=== PATIENT | female | born 1990 | race Caucasian/White ===

== ENCOUNTER 2017-07-02 17:40 | Emergency (ER) | payer MEDICAID, SELFPAY ==
[2017-07-02 18:04] VITALS: BP 111/68; PULSE 64; RESP 20; TEMP 36.9; O2SAT 97; BMI 21.4
[2017-07-02 18:33] VITALS: BP 120/72; PULSE 68; PULSE 86; RESP 16; RESP 20; O2SAT 98; BMI 21.4
--- NOTE | 2017-07-02 18:37 | HMH.EDNECK ---
ED Disposition Clinical Impression: Cervical muscle strain Disposition: Home, Self-Care Condition on Discharge: Good Additional Instructions: Ice for 48 hours, ten minutes at a time every few hours while awake; Naproxen, see Dr. Morin in two to four days for recheck Prescriptions: Naproxen [EC-Naprosyn] 500 mg PO BID PRN #20 tablet.dr OGLESBY Reason: Pain Per Pt (Insurance Account Representative Use Only) Referrals: Blake Morin MD [Primary Care Provider] - Time of Disposition: 19:13 - Critical Care Critical Care Time: No Attestation: On 07/02/17, the high probability of a clinically significant, sudden or life threatening deterioration of the following system(s) required my full and direct attention, intervention and personal management. The time I documented below is in addition to time spent performing reported procedures but includes the following listed in this critical care notation. Medical Decision Making - Jame Inquiry Pt receiving controlled substance: No Vital Signs: 07/02/17 18:04 07/02/17 18:33 Temperature 98.4 F Temperature Source Temporal Artery Scan Pulse Rate [Brachial] 64 68 Respiratory Rate 20 20 Blood Pressure [Right Arm] 111/68 120/72 Blood Pressure Mean [Right Arm] 82 88 Blood Pressure Source [Right Arm] Automatic Cuff Automatic Cuff Blood Pressure Position [Right Arm] Sitting Sitting 02 Sat by Pulse Oximetry 97 98 Oxygen Delivery Method Room Air Room Air - Lab Data Lab Results 07/02/17 18:42: Urine HCG, Qual Negative Orders (Tests/Meds): ED MEDICATIONS Discontinued Medications Generic Name Dose Route Start Last Admin Trade Name Freq PRN Reason Stop Dose Admin Ketorolac Tromethamine 60 mg 07/02/17 18:37 Toradol 30mg/Ml Vial IM 07/02/17 18:38 ONCE ONE ORDERS Category Date Time Status Cervical spine XR 5 views [XR cervical spine 5V] Stat Exams 07/02/17 18:39 Ordered - Radiology Data #1 Image(s): C-Spine Image Reviewed: Yes I reviewed the patient's radiology results Preliminary Findings: Normal/NAD (no acute findings; good alignment and no fx) Neck Pain/Injury HPI - General Stated Complaint: Fall injury, neck and back pain Mode of Arrival: Ambulatory Source of Information: Patient Limitations: No Limitations Description of Symptoms (Recalled from ER Triage Doc. by RN): FELL ON ICE THIS AM HAS NECK AND BACK PAIN - History of Present Illness HPI Narrative: Fell on steps this AM when walking dog; neg LOC; c/o spasm to left neck. No SOB; no neurological sx. No abdominal pain. No vomiting. No chest pain. No low back pain. Ambulatory. Hx lumbar strain but denies hx neck pain prior to today. MD complaint: neck pain Onset (ago): hour(s) Place: home Radiation: left lateral Severity: mild Quality: dull Duration: constant Relieving factors: remaining still Exacerbating factors: movement of neck Context: fall Associated symptoms: none Treatments prior to arrival: acetaminophen - Related Data Previous Rx's Medication Instructions Recorded Naproxen [EC-Naprosyn] 500 mg PO BID PRN #20 tablet. 07/02/17 Allergies Allergy/AdvReac Type Severity Reaction Status Date / Time oxycodone [From PERCOCET] Allergy Unknown ITCHING Unverified 04/10/17 15:10 [facility] History I have reviewed the patient's past medical history: Yes - Social History Smoking Status: Current every day smoker Alcohol Intake: never - Psychiatric History Expresses thoughts of harming self/others: None Suicide Plan Description: No Plan ROS Obtained: Yes All systems reviewed & no additional complaints Physical Exam - General General appearance: alert, in no apparent distress - Head Head exam: atraumatic, normocephalic, normal inspection - Eye Eye exam: Present: normal appearance, PERRL, EOMI - ENT ENT exam: Present: normal exam, normal oropharynx, mucous membranes moist, TM's normal bilaterally, normal external ear exam - Neck Neck exam: Present: normal
--- NOTE | 2017-07-02 18:39 | XR_ITS ---
EXAM: XR cervical spine 5V HISTORY: Neck pain following injury, sprain/strain ITS.REASON: fell; neck spasm L ORDERING PHYSICIAN: Prateek Flanagan PATIENT AGE: 26 years COMPARISON: None FINDINGS: Normal alignment. There is straightening of the cervical lordosis which may be due to patient positioning or muscle spasm. No fracture or dislocation. No lytic or blastic change. No significant degenerative change. The disc spaces are preserved. Mildly prominent transverse processes present at C7 on the right as a normal variant. There is mild upper thoracic curvature convex left IMPRESSION: 1. No acute fracture. 2. Straightening of cervical lordosis which may be due to patient positioning or muscle spasm
--- NOTE | 2017-07-02 18:41 | ED_ITS ---
ED Disposition Clinical Impression: Cervical muscle strain Disposition: Home, Self-Care Condition on Discharge: Good Additional Instructions: Ice for 48 hours, ten minutes at a time every few hours while awake; Naproxen, see Dr. Morin in two to four days for recheck Prescriptions: Naproxen [EC-Naprosyn] 500 mg PO BID PRN #20 tablet.dr OGLESBY Reason: Pain Per Pt (Financial Sales Advisor Use Only) Referrals: Blake Morin MD [Primary Care Provider] - Time of Disposition: 19:13 - Critical Care Critical Care Time: No Attestation: On 07/02/17, the high probability of a clinically significant, sudden or life threatening deterioration of the following system(s) required my full and direct attention, intervention and personal management. The time I documented below is in addition to time spent performing reported procedures but includes the following listed in this critical care notation. Medical Decision Making - Jame Inquiry Pt receiving controlled substance: No Vital Signs: 07/02/17 18:04 07/02/17 18:33 Temperature 98.4 F Temperature Source Temporal Artery Scan Pulse Rate [Brachial] 64 68 Respiratory Rate 20 20 Blood Pressure [Right Arm] 111/68 120/72 Blood Pressure Mean [Right Arm] 82 88 Blood Pressure Source [Right Arm] Automatic Cuff Automatic Cuff Blood Pressure Position [Right Arm] Sitting Sitting 02 Sat by Pulse Oximetry 97 98 Oxygen Delivery Method Room Air Room Air - Lab Data Lab Results 07/02/17 18:42: Urine HCG, Qual Negative Orders (Tests/Meds): ED MEDICATIONS Discontinued Medications Generic Name Dose Route Start Last Admin Trade Name Freq PRN Reason Stop Dose Admin Ketorolac Tromethamine 60 mg 07/02/17 18:37 Toradol 30mg/Ml Vial IM 07/02/17 18:38 ONCE ONE ORDERS Category Date Time Status Cervical spine XR 5 views [XR cervical spine 5V] Stat Exams 07/02/17 18:39 Ordered - Radiology Data #1 Image(s): C-Spine Image Reviewed: Yes I reviewed the patient's radiology results Preliminary Findings: Normal/NAD (no acute findings; good alignment and no fx) Neck Pain/Injury HPI - General Stated Complaint: Fall injury, neck and back pain Mode of Arrival: Ambulatory Source of Information: Patient Limitations: No Limitations Description of Symptoms (Recalled from ER Triage Doc. by RN): FELL ON ICE THIS AM HAS NECK AND BACK PAIN - History of Present Illness HPI Narrative: Fell on steps this AM when walking dog; neg LOC; c/o spasm to left neck. No SOB ; no neurological sx. No abdominal pain. No vomiting. No chest pain. No low back pain. Ambulatory. Hx lumbar strain but denies hx neck pain prior to today. MD complaint: neck pain Onset (ago): hour(s) Place: home Radiation: left lateral Severity: mild Quality: dull Duration: constant Relieving factors: remaining still Exacerbating factors: movement of neck Context: fall Associated symptoms: none Treatments prior to arrival: acetaminophen - Related Data Previous Rx's Medication Instructions Recorded Naproxen [EC-Naprosyn] 500 mg PO BID PRN #20 tablet. 07/02/17 Allergies Allergy/AdvReac Type Severity Reaction Status Date / Time oxycodone [From PERCOCET] Allergy Unknown ITCHING Unverified 04/10/17 15:10
[2017-07-02 18:51] LABS: Urine Pregnancy, HCG Qual. Negative (Negative)
[2017-07-02 19:23] VITALS: BP 121/84; PULSE 96; RESP 12; TEMP 37; O2SAT 100
== END 2017-07-02 19:26 | disposition home or self-care (01) ==
LOC: UTC 17:42 → ER 18:28
PROVIDERS: Emergency Medicine; Emergency Provider Nurse Practitioner Family; Family Provider Emergency Medicine; PCP Internal Medicine Adolescent Medicine
DX: S16.1XXA Strain of muscle, fascia and tendon at neck level, initial encounter (principal); Z88.6 Allergy status to analgesic agent; F17.210 Nicotine dependence, cigarettes, uncomplicated; W10.9XXA Fall (on) (from) unspecified stairs and steps, initial encounter; Y92.019 Unspecified place in single-family (private) house as the place of occurrence of the external cause
CPT/HCPCS: 72050; 81025; 96372; 99283; 99291

== ENCOUNTER → 2018-07-04 13:00 | Outpatient (CLI) | payer MEDICAID, SELFPAY ==
--- NOTE | 2018-07-04 13:01 | US_ITS ---
US breast RT complete INDICATION: Palpable abnormality at 9:00 ORDERING PHYSICIAN: Jeffrey Malagon MD PATIENT AGE: 27 years COMPARISON: 03/30/2010 TECHNIQUE: Right breast ultrasound complete with axilla. FINDINGS: There is a 9 x 5 x 11 mm slightly hypoechoic nodule at 7:00 near the nipple. At the palpable area o'clock there is a ill-defined area of heterogeneous decrease echogenicity. The 10:00 there is also heterogeneous decreased echogenicity. Prominent ducts are present in the 2 small nodes in the axilla. IMPRESSION: Probably benign findings with scattered hypoechoic areas which may be due to areas of fibroglandular tissue. Recommend 3 month follow-up BI-RADS Category: 3 Probably Benign Finding Short Term Follow-up RECOMMENDED FOLLOW-UP: 3M - 3 MONTH FOLLOWUP (A letter has been sent to the patient regarding results of the study.)
== END ==
PROVIDERS: PCP Internal Medicine Adolescent Medicine; Visit Provider Nurse Practitioner Obstetrics & Gynecology
DX: N63.10 Unspecified lump in the right breast, unspecified quadrant (principal)
CPT/HCPCS: 76641

== ENCOUNTER → 2018-11-14 15:01 | Outpatient (CLI) | payer MEDICAID, SELFPAY ==
[2018-11-14 15:12] LABS: Basophils % 0.5 % (0.1-2.0); Eosinophils # 0.2 K/mm3 (0.0-0.4); Eosinophils % 3.2 % (0.1-12.0); Hematocrit 43.3 % (37.0-47.0); Hemoglobin 13.4 g/dL (12.2-16.2); Lymphocytes # 1.9 K/mm3 (0.7-4.5); Lymphocytes % 27.6 % (10-50); Mean Corpuscular HGB Conc 30.8 g/dL (31.8-35.4); Mean Corpuscular Hemoglobin 26.8 pg (27.0-31.2); Mean Corpuscular Volume 86.9 fl (81-99); Monocytes # 0.4 K/mm3 (0.1-1.0); Monocytes % 5.3 % (1.7-9.3); Neutrophils # 4.4 K/mm3 (1.8-7.8); Neutrophils % 63.5 % (37.0-80.0); Platelet Count 229 K/mm3 (142-424); Red Blood Count 4.98 M/mm3 (4.20-5.40); Red Cell Distribution Width 12.6 % (11.5-17.5); White Blood Count 6.9 K/mm3 (4.8-10.8)
[2018-11-14 16:21] LABS: Alanine Aminotransferase 18 U/L (12-78); Albumin Level 3.5 gm/dL (3.4-5.0); Albumin/Globulin Ratio 1.3 (1.1-1.8); Alkaline Phosphatase 59 U/L (46-116); Anion Gap 7.9 mEq/L (5-15); Aspartate Amino Transferase 7 U/L (15-37); Bilirubin,Total 0.3 mg/dL (0.2-1.0); Blood Urea Nitrogen 5 mg/dL (7-18); Calcium 10.1 mg/dL (8.5-10.1); Carbon Dioxide 34 mmol/L (21.0-32.0); Chloride 104 mmol/L (98-107); Creatinine,Serum 0.87 mg/dL (0.55-1.02); Estimated Glomerular Filt Rate 78 ml/min (>60); Free Thyroxine Index 1.4 ug/dL (5.93-13.13); GFR (African American) 94 ML/MIN (>60); Globulin 2.8 gm/dl (1.3-3.2); Glucose 81 mg/dL (74-106); Potassium 4.9 mmoL/L (3.5-5.1); Sodium 141 mmol/L (136-145); T4 (Thyroxine) 5.5 ug/dl (4.7-13.3); Thyroid Stimulating Hormone 3.11 uIU/ml (0.358-3.740); Total Protein,Serum 6.3 gm/dL (6.4-8.2); Triiodothryronine (T3) Uptake 26 % (31-39)
== END ==
PROVIDERS: Visit Provider Nurse Practitioner Family
DX: F41.8 Other specified anxiety disorders (principal); Z86.39 Personal history of other endocrine, nutritional and metabolic disease
CPT/HCPCS: 36415; 80053; 84436; 84443; 84479; 85025

== ENCOUNTER 2019-09-17 23:11 | Emergency (ER) | payer OTHER, SELFPAY ==
[2019-09-18 00:22] VITALS: BMI 21.6
[2019-09-18 00:23] VITALS: BP 110/68; PULSE 86; RESP 14; TEMP 36.8; O2SAT 99; BMI 21.6
[2019-09-18 00:36] LABS: Microscopic, Urine URINE MICROSCOPIC (MICROSCOPIC)
[2019-09-18 00:38] LABS: Appearance,Urine CLEAR (Clear); Bilirubin,Urine Negative (Negative); Blood, Urine 3+ (Negative); Color,Urine YELLOW (Yellow); Glucose,Urine (UA) Negative (Negative); Ketones,Urine Negative (Negative); Leukocyte Esterase,Urine 3+ (Negative); Nitrate,Urine POSITIVE (Negative); Protein,Urine Negative (Negative); Urobilinogen,Urine 0.2 EU/dl (0.2)
[2019-09-18 00:50] LABS: Urine Pregnancy, HCG Qual. Negative (Negative)
[2019-09-18 00:57] LABS: Bacteria,Urine Trace /lpf; Squamous Epithelial Cell,Urine Occasional #/hpf (0-5); WBC,Urine 20-50 #/hpf (0-3)
--- NOTE | 2019-09-18 01:02 | HMH.EDGENADL ---
ED Disposition Clinical Impression: UTI (urinary tract infection) Qualifiers: Urinary tract infection type: site unspecified Hematuria presence: without hematuria Qualified Code(s): N39.0 - Urinary tract infection, site not specified Disposition: Home, Self-Care Condition on Discharge: Good Instructions: DI for Urinary Tract Infection (UTI) Additional Instructions: use meds and see pcp and dr batista for follow up Prescriptions: levoFLOXacin [Levaquin 500mg tab] 500 mg PO DAILY #7 tab Transmission Status: Pending to [id number] Phenazopyridine HCl [Pyridium 200mg Tablet] 200 pow PO TID #6 tab Transmission Status: Pending to [id number] Referrals: Eladio Pittman MD [Primary Care Provider] - Quintin Batista MD [Staff Physician] - - Critical Care Critical Care Time: No Attestation: On 09/17/19, the high probability of a clinically significant, sudden or life threatening deterioration of the following system(s) required my full and direct attention, intervention and personal management. The time I documented below is in addition to time spent performing reported procedures but includes the following listed in this critical care notation. Medical Decision Making - Medical Records Medical records reviewed: Yes: I reviewed the patient's medical records. - Jame Inquiry Pt receiving controlled substance: No Vital Signs: 09/18/19 00:23 Temperature 98.3 F Temperature Source Oral Pulse Rate [Right] 86 Respiratory Rate 14 Blood Pressure [Right Arm] 110/68 Blood Pressure Mean [Right Arm] 82 Blood Pressure Source [Right Arm] Automatic Cuff Blood Pressure Position [Right Arm] Sitting 02 Sat by Pulse Oximetry 99 Oxygen Delivery Method Room Air - Lab Data Lab results reviewed: Yes: I reviewed the patient's lab results. Lab Results 09/18/19 00:00: Urine Color Yellow, Urine Appearance Clear, Urine pH 7.0, Ur Specific Doran 1.010, Urine Protein Negative, Urine Glucose (UA) Negative, Urine Ketones Negative, Urine Blood 3+, Urine Nitrate Positive, Urine Bilirubin Negative, Urine Urobilinogen 0.2, Ur Leukocyte Esterase 3+ A, Urine RBC 5-10, Urine WBC 20-50, Ur Squamous Epith Cells Occasional, Urine Bacteria Trace 09/18/19 00:00: Urine HCG, Qual Negative Orders (Tests/Meds): ORDERS Category Date Time Status Urine Culture Stat Micro 09/18/19 00:00 Received General Adult HPI - General Chief complaint: PAIN Stated complaint: burning with urinating with pain Time Seen by Provider: 09/18/19 00:00 Mode of Arrival: Ambulatory Source of Information: Patient, Medical Record Limitations: No Limitations Description of Symptoms (Recalled from ER Triage Doc. by RN): Bilat lower back pain - History of Present Illness HPI narrative: dysuria with bilat back pain with no fever or vomiting Onset (ago): day(s) Location: back Severity: moderate Associated symptoms: denies other symptoms Treatments prior to arrival: none - Related Data Previous Rx's Medication Instructions Recorded Phenazopyridine HCl [Pyridium 200 pow PO TID #6 tab 09/18/19 200mg Tablet] levoFLOXacin [Levaquin 500mg 500 mg PO DAILY #7 tab 09/18/19 tab] Allergies Allergy/AdvReac Type Severity Reaction Status Date / Time oxycodone [From PERCOCET] Allergy Unknown ITCHING Verified 06/03/18 16:04 [facility] History - Hepatitis A Screen Drug use history?: No High risk sexual behaviors?: No History of sexually transmitted infection?: No Currently employed?: No Childcare worker?: No Do you have indoor plumbing?: Yes Do you have electricity?: Yes Attestation statement:: This patient has been screened for Hepatitis A risk factors. I have reviewed the patient's past medical history: Yes Medical History: Denies:: Diabetes Mellitus Type 1, Diabetes Mellitus Type 2 Fractures: Yes (LUMBAR FX 2 YEARS AGO) - Social History Smoking Status: Current every day smoker Tobacco Type: ciga
[2019-09-18 01:39] VITALS: BP 126/83; PULSE 75; RESP 16; TEMP 36.8; O2SAT 98
== END 2019-09-18 01:40 | disposition home or self-care (01) ==
PROVIDERS: Emergency Provider Emergency Medicine; PCP Emergency Medicine
DX: N30.00 Acute cystitis without hematuria (principal); F17.210 Nicotine dependence, cigarettes, uncomplicated
CPT/HCPCS: 81001; 81025; 87086; 87088; 87186; 99282

== ENCOUNTER → 2020-02-12 17:29 | Outpatient (CLI) | payer OTHER, SELFPAY ==
[2020-02-12 17:53] LABS: Basophils % 0.7 % (0.1-2.0); Eosinophils # 0.2 K/mm3 (0.0-0.4); Eosinophils % 3.2 % (0.1-12.0); Hematocrit 42.6 % (37.0-47.0); Hemoglobin 13.4 g/dL (12.2-16.2); Lymphocytes # 1.4 K/mm3 (0.7-4.5); Lymphocytes % 28.9 % (10-50); Mean Corpuscular HGB Conc 31.5 g/dL (31.8-35.4); Mean Corpuscular Hemoglobin 28.3 pg (27.0-31.2); Mean Corpuscular Volume 90.1 fl (81-99); Mean Platelet Volume 9.1 fl (7.4-10.4); Monocytes # 0.3 K/mm3 (0.1-1.0); Monocytes % 6.1 % (1.7-9.3); Neutrophils # 2.9 K/mm3 (1.8-7.8); Neutrophils % 61.1 % (37.0-80.0); Platelet Count 210 K/mm3 (142-424); Red Blood Count 4.73 M/mm3 (4.20-5.40); Red Cell Distribution Width 13.2 % (11.5-17.5); White Blood Count 4.7 K/mm3 (4.8-10.8)
[2020-02-12 18:13] LABS: Alanine Aminotransferase 9 U/L (12-78); Albumin Level 4.5 g/dl (3.5-5.0); Albumin/Globulin Ratio 1.6 (1.1-1.8); Alkaline Phosphatase 56 U/L (38-126); Anion Gap 12.4 mEq/L (5-15); Aspartate Amino Transferase 22 U/L (14-36); Bilirubin,Total 0.3 mg/dl (0.2-1.3); Blood Urea Nitrogen 4 mg/dl (7-17); Calcium 9.4 mg/dl (8.4-10.2); Carbon Dioxide 29 mmol/L (22.0-30.0); Chloride 105 mmol/L (98-107); Chol/HDL Ratio 2.9 (1-3.5); Cholesterol 157 mg/dl (140-200); Estimated Glomerular Filt Rate 99 ml/min (>60); GFR (African American) 120 ML/MIN (>60); Globulin 2.9 g/dL (1.3-3.2); Glucose 94 mg/dl (74-100); HDL Cholesterol 54 mg/dl (40-60); Potassium 4.4 mmoL/L (3.5-5.1); Sodium 142 mmol/L (136-145); Total Protein,Serum 7.4 g/dl (6.3-8.2); Triglycerides 66 mg/dl (30-150); VLDL Cholesterol 13 mg/dL (0-40)
[2020-02-12 18:28] LABS: Direct LDL Cholesterol 93.28 mg/dL (100-129)
[2020-02-12 21:53] LABS: T4 (Thyroxine) 6.4 ug/dl (5.53-11.0)
[2020-02-12 22:06] LABS: Thyroid Stimulating Hormone 4.39 uIU/mL (0.465-4.68)
== END ==
PROVIDERS: Visit Provider Nurse Practitioner Family
DX: R53.83 Other fatigue (principal); E03.9 Hypothyroidism, unspecified
CPT/HCPCS: 80053; 80061; 84436; 84443; 85025

== ENCOUNTER → 2020-02-17 13:48 | Outpatient (CLI) | payer OTHER, SELFPAY ==
--- NOTE | 2020-02-17 13:48 | US_ITS ---
PROCEDURE: US THYROID CLINICAL INDICATION: enlarged thyroid Enlarged thyroid gland COMPARISON: No exams were available for comparison FINDINGS: Right lobe: 4.7 x 1.7 x 2.3 cm Left lobe: 4.9 x 1.9 x 1.6 cm. Isthmus: Mildly thickened at 5 mm Additional findings: There is heterogeneous echogenicity bilaterally. In the upper pole on the right there is a 5 mm slightly hyperechoic nodule nodule. Mid polar region 8 mm hyperechoic nodule. In the lower pole there is a 7 mm hypoechoic nodule. On the left in the lower pole there is a 12 mm hyperechoic nodule. Additionally in the left lower pole there is a 10 mm hyperechoic nodule. These nodules are well-circumscribed and have low level of suspicion for malignancy IMPRESSION: Probably benign findings. Recommend six-month follow-up regarding bilateral nodules and enlarged thyroid gland. Dictated by: Curly Britton MD 02/18/2020 12:25 Curly Britton MD in [place] 02/18/2020 12:25
== END ==
PROVIDERS: PCP Nurse Practitioner Family; Visit Provider Nurse Practitioner Family
DX: E04.9 Nontoxic goiter, unspecified (principal)
CPT/HCPCS: 76536

== ENCOUNTER → 2020-03-08 15:48 | Outpatient (CLI) | payer OTHER, SELFPAY ==
[2020-03-08 16:57] LABS: Calcium 10.3 mg/dl (8.4-10.2)
[2020-03-11 09:24] LABS: Thyroid Peroxidase Antibodies 118 IU/mL (0-34)
[2020-03-12 08:59] LABS: Calcitonin <2.0 pg/mL (0.0-5.0)
[2020-03-13 11:00] LABS: Thyroid Stimulating Immunoglob <0.10 IU/L (0.00-0.55)
== END ==
PROVIDERS: Visit Provider Otolaryngology
DX: E01.0 Iodine-deficiency related diffuse (endemic) goiter (principal); E04.9 Nontoxic goiter, unspecified
CPT/HCPCS: 36415; 82308; 82310; 84445; 86376

== ENCOUNTER → 2020-07-05 15:06 | Outpatient (CLI) | payer OTHER, SELFPAY ==
--- NOTE | 2020-07-05 15:06 | US_ITS ---
PROCEDURE: US THYROID CLINICAL INDICATION: hx thyroiditis Follow up Nodules still seen COMPARISON: US US THYROID from 02/17/2020 FINDINGS: Right lobe: 1.8cm x 4.8cm x 2.6cm. There is diffuse heterogeneous echogenicity of the thyroid. There is a stable slightly hyperechoic nodule in the upper pole at 4 mm. Stable 9 mm isoechoic nodule in the mid polar region at 10 mm. Stable 7 mm hypoechoic nodule lower pole Left lobe: 1.5cm x 4.7cm x 1.7cm. There is a 5 mm area of slight increased echogenicity in the upper pole which could represent a small nodule versus heterogeneous echogenicity. 9 mm isoechoic nodule lower pole unchanged. Stable 8 mm slightly hyperechoic nodule in the lower pole Isthmus: The isthmus is thickened 4 mm. Additional findings: IMPRESSION: Stable bilateral thyroid nodules as described above. Ill-defined hyperechoic area upper pole and may be due to a small developing nodule versus heterogeneous echogenicity. Continued follow-up may confirm stability Dictated by: Curly Britton MD 07/06/2020 09:10 Curly Britton MD in [place] 07/06/2020 09:10
== END ==
PROVIDERS: PCP Emergency Medicine; Visit Provider Otolaryngology
DX: E06.9 Thyroiditis, unspecified (principal)
CPT/HCPCS: 76536

== ENCOUNTER → 2020-08-27 13:18 | Outpatient (CLI) | payer OTHER, SELFPAY ==
--- NOTE | 2020-08-27 13:18 | US_ITS ---
PROCEDURE: US OB <= 14 WEEKS FETUS CLINICAL INDICATION: for dates COMPARISON: No exams were available for comparison FINDINGS: An intrauterine gestational sac is present with a pole with a crown-rump length of 0.21cm correlating to gestational age of 5weeks 6days. heart tones are not readily identified however may be too early. Heart flicker may be present however, this is questionable. Yolk sac is noted. IMPRESSION: There is a single live intrauterine gestation present at 5 weeks 6 days. Heart tones are not definitely confirm. Follow-up suggested in 1-2 weeks to confirm viability.. Estimated due date by Ultrasound is 04/23/2021 Dictated by: Curly Britton MD 08/27/2020 17:15 Curly Britton MD in [place] 08/27/2020 17:15
== END ==
PROVIDERS: PCP Emergency Medicine; Visit Provider Nurse Practitioner Obstetrics & Gynecology
DX: Z34.90 Encounter for supervision of normal pregnancy, unspecified, unspecified trimester (principal)
CPT/HCPCS: 76801

== ENCOUNTER → 2020-09-15 15:45 | Outpatient (CLI) | payer OTHER, SELFPAY ==
[2020-09-15 16:27] LABS: Basophils % 0.5 % (0.1-2.0); Eosinophils # 0.1 K/mm3 (0.0-0.4); Eosinophils % 1.2 % (0.1-12.0); Hematocrit 36.9 % (37.0-47.0); Hemoglobin 12.5 g/dL (12.2-16.2); Lymphocytes # 1.2 K/mm3 (0.7-4.5); Lymphocytes % 18.6 % (10-50); Mean Corpuscular Hemoglobin 28.8 pg (27.0-31.2); Mean Corpuscular Volume 84.7 fl (81-99); Mean Platelet Volume 8.7 fl (7.4-10.4); Monocytes # 0.2 K/mm3 (0.1-1.0); Monocytes % 3.8 % (1.7-9.3); Neutrophils # 4.8 K/mm3 (1.8-7.8); Neutrophils % 75.9 % (37.0-80.0); Platelet Count 167 K/mm3 (142-424); Red Blood Count 4.36 M/mm3 (4.20-5.40); White Blood Count 6.3 K/mm3 (4.8-10.8)
[2020-09-15 20:46] LABS: T4 (Thyroxine) 7.3 ug/dl (5.53-11.0); Triiodothryronine (T3) Uptake 27 % (23.5-40.5)
[2020-09-15 20:59] LABS: Thyroid Stimulating Hormone 3.31 uIU/mL (0.465-4.68)
[2020-09-17 11:07] LABS: HIV Screen 4th Generation wRfx Non Reactive (Non Reactive)
[2020-09-17 12:46] LABS: Hepatitis B Surface Antigen Negative (Negative); Hepatitis C Antibody <0.1 s/co ratio (0.0-0.9); Rubella Antibodies, IgG 6.04 index (Immune >0.99)
[2020-09-17 13:12] LABS: Rapid Plasma Reagin Ab Titer Non Reactive (NonRea<1:1)
[2020-09-18 18:05] LABS: HSV 2 IgG Supplemental Testing Positive (Negative); HSV 2 IgG, Type Spec 1.36 index (0.00-0.90)
== END ==
PROVIDERS: Visit Provider Nurse Practitioner Obstetrics & Gynecology
DX: Z34.90 Encounter for supervision of normal pregnancy, unspecified, unspecified trimester (principal); E07.9 Disorder of thyroid, unspecified; O99.280 Endocrine, nutritional and metabolic diseases complicating pregnancy, unspecified trimester
CPT/HCPCS: 36415; 84436; 84443; 84479; 85025; 86592; 86695; 86703; 86762; 86790; 86850; 87340; 87380; G0432

== ENCOUNTER → 2020-12-08 12:42 | Outpatient (CLI) | payer OTHER, SELFPAY ==
--- NOTE | 2020-12-08 12:42 | US_ITS ---
PROCEDURE: US OB >= 14 WEEKS FETUS CLINICAL INDICATION: 20 week gestation COMPARISON: US US OB <= 14 WEEKS FETUS from 08/27/2020 FINDINGS: There is a single live fetus present in breech presentation. heart and body motion noted. Cervix is closed and measures 3 cm. The placenta is posterior with an accessory anterior lobe. Complete survey performed and was unremarkable on the submitted images as in PACS. No discrete anomalies identified on survey imaging by technologist. Active fetus. Three-vessel cord with satisfactory umbilical cord insertion. 4- chamber heart noted. Survey of brain & ventricles Unremarkable. Face and neck survey unremarkable. Diaphragm and chest views unremarkable. Abdomen: Both kidneys noted and unremarkable. Stomach noted and satisfactory. Spine: Survey of the spine satisfactory with no anomalies identified nor imaged. Both arms and legs noted. Amniotic Fluid: Adequate. Maternal adnexa: No significant findings. Measurements: Average ultrasound age 20weeks 2days. Gestational Age 20weeks 2days Estimated due date by ultrasound age 0104/25/2021. Estimated weight 358g BPD = 20weeks OFD = 20weeks 2days HC = 19weeks 3days AC = 21weeks 2days FL = 20weeks 1day Growth Percentile= 41% Heart Rate = 144bpm Cerebellum = 22weeks Humerus = 20weeks 1day HC/AC is 1.04 CI is 0.77 FL/BPD is 0.7 FL/AC is 0.2 IMPRESSION: Live IUP in breech presentation with an average ultrasound age of 20 weeks and 2 days. No obvious anomalies. Please see above for detail. Dictated by: Curly Britton MD 12/08/2020 16:51 Curly Britton MD in [place] 12/08/2020 16:51
== END ==
PROVIDERS: PCP Emergency Medicine; Visit Provider Nurse Practitioner Obstetrics & Gynecology
DX: Z36.0 Encounter for antenatal screening for chromosomal anomalies (principal); Z3A.20 20 weeks gestation of pregnancy
CPT/HCPCS: 76805

== ENCOUNTER → 2020-12-13 14:34 | Outpatient (CLI) | payer OTHER, SELFPAY | PROVIDERS: PCP Emergency Medicine; Visit Provider Nurse Practitioner Obstetrics & Gynecology | DX: Z11.52 Encounter for screening for COVID-19 (principal); U07.1 COVID-19 | CPT/HCPCS: U0003 ==

== ENCOUNTER → 2020-12-17 15:32 | Outpatient (CLI) | payer OTHER, SELFPAY ==
[2020-12-17 16:03] LABS: Influenza A, PCR Not Detected (NotDetected); Influenza B, PCR Not Detected (NotDetected)
[2020-12-17 16:49] LABS: Coronavirus 19, PCR Detected (NotDetected)
== END ==
PROVIDERS: PCP Nurse Practitioner Family; Visit Provider Nurse Practitioner Obstetrics & Gynecology
DX: Z20.822 Contact with and (suspected) exposure to COVID-19 (principal); U07.1 COVID-19
CPT/HCPCS: U0003

== ENCOUNTER 2021-01-21 09:53 | Outpatient (CLI) | payer OTHER, SELFPAY ==
[2021-01-21 10:33] LABS: Glucose,Fasting 88 mg/dl (74-100)
[2021-01-21 12:30] VITALS: BP 101/60; PULSE 64; RESP 17; TEMP 37; O2SAT 100
[2021-01-21 12:39] LABS: Glucose 1 Hour 127 mg/dL (74-100)
== END 2021-01-21 12:30 | disposition home or self-care (01) ==
PROVIDERS: Visit Provider Nurse Practitioner Obstetrics & Gynecology
DX: Z29.13 Encounter for prophylactic Rho(D) immune globulin (principal); Z34.90 Encounter for supervision of normal pregnancy, unspecified, unspecified trimester
CPT/HCPCS: 36415; 82951; 96372; J2790

== ENCOUNTER 2021-02-08 18:21 | Outpatient (CLI) | payer OTHER, SELFPAY ==
[2021-02-08 18:45] VITALS: BMI 24.0
[2021-02-08 19:07] LABS: Microscopic, Urine URINE MICROSCOPIC (MICROSCOPIC)
[2021-02-08 19:18] LABS: Appearance,Urine CLEAR (Clear); Bilirubin,Urine Negative (Negative); Blood, Urine Negative (Negative); Color,Urine YELLOW (Yellow); Glucose,Urine (UA) Negative (Negative); Ketones,Urine Negative (Negative); Leukocyte Esterase,Urine Negative (Negative); Nitrate,Urine Negative (Negative); Protein,Urine Negative (Negative); Specific Gravity, Urine <= 1.005 (1.005-1.030); Urobilinogen,Urine 0.2 EU/dl (0.2)
[2021-02-08 19:29] LABS: Amphetamine/Metha Screen,Urine Negative ng/ml (<1000); Barbiturates Screen,Urine Negative ng/ml (<200)
[2021-02-08 19:30] LABS: Benzodiazepines Screen,Urine Negative ng/ml (<200)
[2021-02-08 19:31] LABS: Cannabinoid Screen,Urine Negative ng/ml (<50); Cocaine Screen,Urine Negative ng/ml (<300)
[2021-02-08 19:32] LABS: Methadone Screen,Urine Negative ng/ml (<300)
[2021-02-08 19:33] LABS: Opiate Screen,Urine Negative ng/ml (<300); Phencyclidine Screen,Urine Negative ng/ml (<25)
[2021-02-08 19:43] VITALS: BP 103/59; PULSE 91; RESP 18; TEMP 36.8; O2SAT 95; BMI 23.9
[2021-02-08 20:12] LABS: Bacteria,Urine Trace /lpf
[2021-02-08 20:30] LABS: Fetal Fibronectin (Rapid) Negative (Negative)
== END 2021-02-08 21:01 | disposition home or self-care (01) ==
LOC: OBOUT 18:22 → OB 18:24
PROVIDERS: PCP Nurse Practitioner Obstetrics & Gynecology; Visit Provider Nurse Practitioner Obstetrics & Gynecology
DX: O47.03 False labor before 37 completed weeks of gestation, third trimester (principal); Z3A.29 29 weeks gestation of pregnancy
CPT/HCPCS: 59025; 80305; 81001; 82731; G0463

== ENCOUNTER → 2021-03-21 13:19 | Outpatient (CLI) | payer OTHER, SELFPAY ==
--- NOTE | 2021-03-21 13:19 | US_ITS ---
PROCEDURE: US OB FOLLOW UP CLINICAL INDICATION: sga FINDINGS: The following parameters are obtained: There is a single live fetus in cephalic presentation. The placenta is posterior and grade 2. Cervix is closed measuring 3.5 cm. Average ultrasound age is Average 34weeks Estimated due date by ultrasound is 05/02/2021. Estimated weight is 2,309g. BPD: 33weeks 6days OFD: 34.1 weeks HC: 33weeks 5days AC: 33weeks 6days FL: 34weeks 3days heart rate: 146bpm bpm. HC/AC: 1.01 Cephalic index: 0.78 FL/BPD: 0.8 FL/AC: 0.22 Amniotic fluid index: 15.5cm The femur length is 34weeks 3days Biophysical profile is 8 of 8. Resistive index of the umbilical artery is 0.62 and the SD ratio is 2.7. These are below 90th percentile IMPRESSION: Live IUP in cephalic presentation with an average ultrasound age 34 weeks and an estimated weight of 2309 g. This is 15th percentile. Biophysical profile 8 of 8 Unremarkable SD ratio of the umbilical artery. Dictated by: Curly Britton MD 03/21/2021 17:11 Curly Britton MD in [place] 03/21/2021 17:11
== END ==
PROVIDERS: Visit Provider Nurse Practitioner Obstetrics & Gynecology
DX: O36.5990 Maternal care for other known or suspected poor fetal growth, unspecified trimester, not applicable or unspecified (principal)
CPT/HCPCS: 76816; 76819

== ENCOUNTER → 2021-03-22 18:08 | Outpatient (CLI) | payer OTHER, SELFPAY | PROVIDERS: Visit Provider Nurse Practitioner Obstetrics & Gynecology | DX: Z34.90 Encounter for supervision of normal pregnancy, unspecified, unspecified trimester (principal) | CPT/HCPCS: 86403 ==

== ENCOUNTER 2021-04-01 11:52 | Outpatient (CLI) | payer OTHER, SELFPAY ==
[2021-04-01 12:00] VITALS: BMI 23.8
[2021-04-01 12:41] VITALS: BP 118/65; PULSE 94; RESP 18; TEMP 36.4; O2SAT 100; BMI 23.8
== END 2021-04-01 12:40 | disposition home or self-care (01) ==
LOC: OBOUT 11:53 → OB 11:54
PROVIDERS: PCP Nurse Practitioner Family; Visit Provider Obstetrics & Gynecology
DX: O47.03 False labor before 37 completed weeks of gestation, third trimester (principal); Z3A.36 36 weeks gestation of pregnancy
CPT/HCPCS: 59025; G0463

== ENCOUNTER 2021-04-13 15:09 | Outpatient (CLI) | payer OTHER, SELFPAY ==
[2021-04-13 15:26] VITALS: BP 109/61; PULSE 100; RESP 20; TEMP 36.8; O2SAT 100; BMI 23.8
[2021-04-13 15:54] VITALS: BP 109/61; PULSE 100; RESP 20; TEMP 36.8; O2SAT 100; BMI 23.8
[2021-04-13 16:07] LABS: Microscopic, Urine URINE MICROSCOPIC (MICROSCOPIC)
[2021-04-13 16:11] LABS: Appearance,Urine CLEAR (Clear); Bilirubin,Urine Negative (Negative); Blood, Urine Negative (Negative); Color,Urine YELLOW (Yellow); Glucose,Urine (UA) Negative (Negative); Ketones,Urine Negative (Negative); Leukocyte Esterase,Urine Negative (Negative); Nitrate,Urine Negative (Negative); PH,Urine 6.5 (5.0-8.5); Protein,Urine Negative (Negative); Urobilinogen,Urine 0.2 EU/dl (0.2)
[2021-04-13 16:23] LABS: Amphetamine/Metha Screen,Urine Negative ng/ml (<1000); Barbiturates Screen,Urine Negative ng/ml (<200)
[2021-04-13 16:24] LABS: Benzodiazepines Screen,Urine Negative ng/ml (<200)
[2021-04-13 16:25] LABS: Cannabinoid Screen,Urine Negative ng/ml (<50); Cocaine Screen,Urine Negative ng/ml (<300)
[2021-04-13 16:26] LABS: Methadone Screen,Urine Negative ng/ml (<300)
[2021-04-13 16:27] LABS: Opiate Screen,Urine Negative ng/ml (<300); Phencyclidine Screen,Urine Negative ng/ml (<25)
[2021-04-13 16:36] LABS: Squamous Epithelial Cell,Urine Occasional #/hpf (0-5)
== END 2021-04-13 16:55 | disposition home or self-care (01) ==
LOC: OBOUT 15:11 → OB 15:11
PROVIDERS: PCP Nurse Practitioner Family; Visit Provider Nurse Practitioner Obstetrics & Gynecology
DX: O60.03 Preterm labor without delivery, third trimester (principal); Z3A.38 38 weeks gestation of pregnancy
CPT/HCPCS: 59025; 80305; 81001; G0463

== ENCOUNTER 2021-04-16 19:09 | Outpatient (CLI) | payer OTHER, SELFPAY ==
[2021-04-16 19:21] VITALS: BMI 23.9
[2021-04-16 19:41] VITALS: BP 112/63; PULSE 94; RESP 18; TEMP 36.6; O2SAT 100; BMI 24.0
[2021-04-16 19:47] LABS: Microscopic, Urine URINE MICROSCOPIC (MICROSCOPIC)
[2021-04-16 19:51] LABS: Appearance,Urine CLEAR (Clear); Bilirubin,Urine Negative (Negative); Blood, Urine Negative (Negative); Color,Urine YELLOW (Yellow); Glucose,Urine (UA) Negative (Negative); Ketones,Urine TRACE (Negative); Leukocyte Esterase,Urine TRACE (Negative); Nitrate,Urine Negative (Negative); Protein,Urine TRACE (Negative); Specific Gravity, Urine 1.025 (1.005-1.030)
[2021-04-16 20:02] LABS: Barbiturates Screen,Urine Negative ng/ml (<200); Benzodiazepines Screen,Urine Negative ng/ml (<200)
[2021-04-16 20:03] LABS: Amphetamine/Metha Screen,Urine Negative ng/ml (<1000); Cannabinoid Screen,Urine Negative ng/ml (<50)
[2021-04-16 20:04] LABS: Cocaine Screen,Urine Negative ng/ml (<300)
[2021-04-16 20:05] LABS: Methadone Screen,Urine Negative ng/ml (<300); Opiate Screen,Urine Negative ng/ml (<300)
[2021-04-16 20:06] LABS: Phencyclidine Screen,Urine Negative ng/ml (<25)
[2021-04-16 20:19] LABS: Bacteria,Urine 1+ /lpf; Calcium Oxalate Crystals,Urine 1+ /lpf
== END 2021-04-16 20:30 | disposition home or self-care (01) ==
LOC: OBOUT 19:12 → OB 19:14
PROVIDERS: PCP Nurse Practitioner Obstetrics & Gynecology; Visit Provider Nurse Practitioner Obstetrics & Gynecology
DX: Z34.90 Encounter for supervision of normal pregnancy, unspecified, unspecified trimester (principal)
CPT/HCPCS: 59025; 80305; 81001; 87086; G0463

== ENCOUNTER → 2021-04-17 11:54 | Outpatient (CLI) | payer OTHER, SELFPAY | PROVIDERS: PCP Nurse Practitioner Family; Visit Provider Nurse Practitioner Family | DX: U07.1 COVID-19 (principal) | CPT/HCPCS: C9803; U0003; U0005 ==

== ENCOUNTER 2021-04-19 04:55 | Inpatient (IN) | payer OTHER, SELFPAY ==
[2021-04-19 04:59] VITALS: BMI 24.0
[2021-04-19 05:45] LABS: Coronavirus 19, PCR Not Detected (NotDetected); Influenza A, PCR Not Detected (NotDetected); Influenza B, PCR Not Detected (NotDetected)
[2021-04-19 05:45] LABS: Microscopic, Urine URINE MICROSCOPIC (MICROSCOPIC)
[2021-04-19 05:47] LABS: Appearance,Urine CLEAR (Clear); Bilirubin,Urine Negative (Negative); Blood, Urine Negative (Negative); Color,Urine YELLOW (Yellow); Glucose,Urine (UA) Negative (Negative); Ketones,Urine Negative (Negative); Leukocyte Esterase,Urine TRACE (Negative); Nitrate,Urine Negative (Negative); Protein,Urine Negative (Negative); Urobilinogen,Urine 0.2 EU/dl (0.2)
[2021-04-19 05:49] VITALS: BP 123/56; PULSE 83; RESP 18; TEMP 36.9; O2SAT 98; BMI 24.0
[2021-04-19 05:49] LABS: Basophils # 0.1 K/mm3 (0-0.2); Basophils % 0.9 % (0.1-2.0); Eosinophils # 0.2 K/mm3 (0.0-0.4); Eosinophils % 1.8 % (0.1-12.0); Hematocrit 31.7 % (37.0-47.0); Hemoglobin 10.2 g/dL (12.2-16.2); Lymphocytes # 1.7 K/mm3 (0.7-4.5); Lymphocytes % 18.8 % (10-50); Mean Corpuscular HGB Conc 32.2 g/dL (31.8-35.4); Mean Corpuscular Hemoglobin 27.5 pg (27.0-31.2); Mean Corpuscular Volume 85.4 fl (81-99); Mean Platelet Volume 8.7 fl (7.4-10.4); Monocytes # 0.4 K/mm3 (0.1-1.0); Monocytes % 4.6 % (1.7-9.3); Neutrophils # 6.7 K/mm3 (1.8-7.8); Neutrophils % 73.8 % (37.0-80.0); Platelet Count 237 K/mm3 (142-424); Red Blood Count 3.72 M/mm3 (4.20-5.40); Red Cell Distribution Width 14.5 % (11.5-17.5); White Blood Count 9.1 K/mm3 (4.8-10.8)
[2021-04-19 05:59] LABS: Opiate Screen,Urine Negative ng/ml (<300); Phencyclidine Screen,Urine Negative ng/ml (<25)
[2021-04-19 06:04] LABS: Amphetamine/Metha Screen,Urine Negative ng/ml (<1000)
[2021-04-19 06:05] LABS: Barbiturates Screen,Urine Negative ng/ml (<200)
[2021-04-19 06:06] LABS: Benzodiazepines Screen,Urine Negative ng/ml (<200); Cannabinoid Screen,Urine Negative ng/ml (<50)
[2021-04-19 06:07] LABS: Cocaine Screen,Urine Negative ng/ml (<300); Methadone Screen,Urine Negative ng/ml (<300)
--- NOTE | 2021-04-19 08:21 | HMH.LABNOT ---
Labor Note - Subjective: Date: 04/19/21 Time: 08:21 regular contraction - Objective: NST:: Reactive Contractions:: every 2-3 minutes Cervical Dilation:: 4 Effacement:: 75% Station: -2 Membranes: artificially ruptured - Fetus: Monitoring?: Yes monitoring type:: Internal - Assessment: Labor progressing?: Yes Cephalopelvic disproportion?: No Patient Problems: All Active Problems (Acute) Cervical muscle strain (Acute) Oral candidiasis (Acute) Sciatica (Acute) UTI (urinary tract infection) (Acute) URI (upper respiratory infection) (Acute) Finger injury (Acute) - Plan: Anesthesia for epidural?: Yes Continue to labor down?: Yes Plan for ?: No Continue to monitor?: Yes Start pushing?: No
--- NOTE | 2021-04-19 08:30 | HMH.OBAPHP ---
OB - H&P: HPI Antepartum - History of Present Illness Chief complaint: Term , History of present illness: She is a 30-year-old 6 para 4 at 39 and 3 weeks gestational age. She has had lots of contractions and expressed a desire for delivery at term. - History of Present Criteria for establishing EDC:: LMP confirmed by 1st trimester US care: good care Ultrasounds: normal 1st trimester US, normal mid trimester US Obstetrical complications: none Medical complications: none - Labs Blood type: O (-) negative Rubella: immune RPR/VDRL: nonreactive GBS status: positive HBsAG: negative [facility] History I have reviewed the patient's past medical history: Yes Medical History: Denies:: Diabetes Mellitus Type 1, Diabetes Mellitus Type 2 *Have you ever received a pneumonia vaccine?: No *Have you received a flu vaccine this season?: No Other Medical History: Reports: Thyroid Disease Other Surgeries: Yes: No Previous Surgery, Other. No: Amputation: No Fractures: Yes (LUMBAR FX 2 YEARS AGO) - *Social History Smoking Status: Current every day smoker Tobacco Type: cigarettes # Packs/Day (cigarettes): 1 Alcohol Intake: never Alcohol Intake Frequency:: other Substance Use Type: denies use *Occupational Status:: unemployed *Travel in the last 8 weeks: None Family Hx:: Hyperlipidemia, Diabetes, Asthma, Heart Attack, Hypertension, Stroke Para: 4 Review of Systems - Review of Systems Review of systems:: pertinent systems reviewed and negative unless documented below Meds Home Medications Medication Instructions Recorded Confirmed Type prenat.vits,remedios,enw-ierx-bkhnl 1 tab PO DAILY 09/15/20 04/19/21 History terconazole 0.4 % vaginal cream 1 appful VAGINAL HS 7 Days #45 g 09/15/20 04/12/21 Rx ascorbic acid (vitamin C) 1,000 mg 1 g PO DAILY #90 tab 12/14/20 04/12/21 Rx tablet cholecalciferol (vitamin D3) 50 50 mcg PO DAILY #90 cap 12/14/20 04/12/21 Rx mcg (2,000 unit) capsule zinc 50 mg tablet 50 mg PO DAILY #90 tab 12/14/20 04/12/21 Rx acetaminophen 300 mg-codeine 30 mg 1 tab PO BID PRN #20 tab 10/28/21 12/21/21 Rx tablet methylprednisolone 4 mg tablets in 4 mg PO DAILY #21 tab 02/22/21 04/12/21 Rx a dose pack RX: Ferrous Sulfate 325 mg PO DAILY 04/19/21 04/19/21 History RX: Valacyclovir HCl [Valacyclovir] 1,000 mg PO DAILY 04/19/21 04/19/21 History Allergies Allergy/AdvReac Type Severity Reaction Status Date / Time oxycodone [From PERCOCET] Allergy Unknown ITCHING Verified 04/12/21 09:02 OB - H&P: Exam - Physical Exam Vital signs: Temp Pulse Resp BP Pulse Ox 98.4 F 83 18 123/56 L 98 04/19/21 05:49 04/19/21 05:49 04/19/21 05:49 04/19/21 05:49 04/19/21 05:49 - Constitutional no acute distress - Routine HEENT Exam Head: Present: normocephalic Eye: Present: EOMI, PERRL ENT: Present: mucous membranes moist - Routine Neck Exam Present: supple, full ROM - Routine Respiratory Exam Absent: accessory muscle use (good air entry bilaterally), respiratory distress, wheezes, crackles - Routine Cardiovascular Exam Present: RRR. Absent: murmur - Routine Abdominal Exam Present: soft, normoactive bowel sounds. Absent: tenderness, distended, guarding - Routine Rectal Exam Patient deferred: visual exam, digital exam - Routine Exam Patient deferred: external exam, groin exam, perineal exam - Routine Extremities Exam Present: full ROM. Absent: cyanosis, edema - Routine Skin Exam Present: intact. Absent: cyanosis - Routine Neurological Exam Present: alert, oriented X3 - Routine Psychiatric Exam Present: normal affect OB - Results - Labs Labs: Short CBC 04/19/21 Range/Units 05:32 WBC 9.1 (4.8-10.8) K/mm3 Hgb 10.2 L (12.2-16.2) g/dL Hct 31.7 L (37.0-47.0) % Plt Count 237 (142-424) K/mm3 Urine 04/19/21 Range/Units 05:10 Urine Color Yellow (Yellow) Urine Appearance Clear (
--- NOTE | 2021-04-19 09:32 | P.PN_ITS ---
[facility] Anesthesia Checklist - Patient Identification Patient Identification: Arm Band - Structural Data Admitted From: Inpatient Planned Operative Procedure/s: Labor Epidural Consent for Planned Operative Procedure(s) Verified: Yes Verified Documents: Surgical Consent, History and Physical - NPO Status Verified Time NPO: 00:00 - Additional verifications Anesthesia Reactions: No - Airway Assessment C-Spine Mobility Assessed: Yes (mp2) TMJ Mobility Assessed: Yes Dentition: Good Dentition - Neurological Assessment Level of Consciousness: Awake, Alert - Anesthesia Plan Anesthesia Risk discussed: Yes Anesthesia Plan: Verified ASA Class: II Anesthesia Type: Epidural [facility] History I have reviewed the patient's past medical history: Yes Medical History: Denies:: Diabetes Mellitus Type 1, Diabetes Mellitus Type 2 *Have you ever received a pneumonia vaccine?: No *Have you received a flu vaccine this season?: No Other Medical History: Reports: Thyroid Disease Anesthesia experience/problems:: nac Other Surgeries: Yes: Other. No: Amputation: No Fractures: Yes (LUMBAR FX 2 YEARS AGO) - *Social History Smoking Status: Current every day smoker Tobacco Type: cigarettes # Packs/Day (cigarettes): 1 Alcohol Intake: never Alcohol Intake Frequency:: other Substance Use Type: denies use *Occupational Status:: unemployed *Travel in the last 8 weeks: None Family Hx:: Hyperlipidemia, Diabetes, Asthma, Heart Attack, Hypertension, Stroke Para: 4
--- NOTE | 2021-04-19 09:51 | HMH.LABNOT ---
Labor Note - Subjective: Date: 04/19/21 Time: 09:51 regular contraction - Objective: NST:: Reactive Contractions:: every 2-3 minutes Cervical Dilation:: 6 Effacement:: 90% Station: -1 Membranes: artificially ruptured - Fetus: Monitoring?: Yes - Assessment: Labor progressing?: Yes Cephalopelvic disproportion?: No Patient Problems: All Active Problems Normal delivery at term (Acute) (Acute) Cervical muscle strain (Acute) Oral candidiasis (Acute) Sciatica (Acute) UTI (urinary tract infection) (Acute) URI (upper respiratory infection) (Acute) Finger injury (Acute) - Plan: Anesthesia for epidural?: Yes Continue to labor down?: Yes Plan for ?: No Continue to monitor?: Yes
--- NOTE | 2021-04-19 11:16 | HMH.DN ---
- Delivery Note Delivery Date:: 04/19/21 Delivery Time:: 10:48 Anesthesia Type: Epidural Was labor medically induced?: Yes Induction method: per pitocin protocol Gestational age (weeks): 39 Infant delivered prior to 39 weeks?: No Infant Gender: Female at 1 minute: 8 at 5 minutes: 9 Delivery Procedure:: She is a 30-year-old 6 para 4 who was 39+ weeks gestational age. She was feeling lots of pressure and visited labor and delivery numerous times for labor. We started her on IV oxytocin and ruptured her membranes. Under labor epidural she progressed to full dilation and delivered spontaneously a liveborn female child at 10:48 AM in the morning of April 19, 2021. On deliver the head it was noted that there was a loose nuchal cord which was easily reduced. This was followed by the rest infant's body atraumatically. The baby was vigorous. We allowed the cord to continue to pulsate for approximately 1 minute. The cord was then doubly clamped and cut and the infant was placed on the mother's abdomen for further care. The nurses assigned Apgars of 8 at 1 minute and 9 at 5 minutes. . We then obtained cord blood as well as cord pH. She received IV oxytocin using gentle traction on the cord and countertraction on the fundus I was able to easily deliver the placenta intact. There were no perineal or vaginal lacerations. She has O Rh- blood, she is rubella immune and was group B streptococcus positive. She did receive IV antibiotics while in labor. Her estimated blood loss was approximately 150 cc. Her flight engineer inspector is Dr. Pak. Placental Delivery Description: Spontaneous
--- NOTE | 2021-04-19 13:27 | HMH.PHAINT ---
MEDICATION RECONCILIATION COMPLETED ON PATIENT USING EXTERNAL FILL HISTORY FROM PHARMACY AND LIST FROM COLD STRIP ROLLER OFFICE. -YUE KILPATRICKD
[2021-04-19 19:55] VITALS: BP 104/55; PULSE 75; RESP 18; TEMP 36.8; O2SAT 98
[2021-04-20 03:54] VITALS: BP 102/58; PULSE 68; RESP 18; TEMP 36.4; O2SAT 98
[2021-04-20 05:40] LABS: Hematocrit 29.9 % (37.0-47.0); Hemoglobin 9.4 g/dL (12.2-16.2)
--- NOTE | 2021-04-20 08:32 | HMH.OBDCSM ---
General - General Admission date:: 04/19/21 Discharge date: 04/20/21 HPI - History of Present Illness History of present illness: She is a 30-year-old 6 now para 5 aborta 1 who is 39+ weeks gestational age. She was brought in for induction of labor at term. She was having irregular contractions and pressure. She has a history of precipitous delivery. 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 She has been taking valacyclovir. Hospital Course Hospital Course: She was started on IV oxytocin had her membranes ruptured. She progressed under labor epidural to full dilation and delivered spontaneously a liveborn female child at 10:48 AM on the morning of April 19, 2021. The baby weighed 6 pounds 11 ounces and had Apgars of 8 at 1 minute and 9 at 5 minutes. There were no perineal or vaginal lacerations. She has done well and has remained afebrile throughout her hospitalization. She is eating and drinking and ambulating. She is bottlefeeding. Her lochia is normal. She has O Rh- blood and she will receive RhoGam prior to discharge. She is rubella immune and was group B streptococcus positive. She did receive IV antibiotics while in labor. Her straw boss is Dr. Joseph. She is discharged home to follow-up with me in approximately 2 weeks time. She will continue with her vitamins and iron. She was given the usual instructions with respect to limiting her activity, driving and sexual activity. Her condition on discharge is stable and improved. Rhogam Administration: Given Objective Vital signs: Temp Pulse Resp BP Pulse Ox 97.6 F 68 18 102/58 L 98 04/20/21 03:54 04/20/21 03:54 04/20/21 03:54 04/20/21 03:54 04/20/21 03:54 no acute distress - *Routine HEENT Exam Head: Present: normocephalic Eye: Present: EOMI, PERRL ENT: Present: mucous membranes moist Results Labs on day of discharge: Labs from last 24 hours 04/20/21 04/20/21 05:04 05:04 Hgb 9.4 L Hct 29.9 L Screen Negative Baby's Rh Status Positive Rhogam Infusion Rhogam release DS: Diagnosis - Discharge Diagnosis (1) Normal delivery at term Status: Acute (2) Mother positive for group B Streptococcus colonization Status: Acute (3) Blood type, Rh negative Status: Acute (4) Herpes simplex type 2 infection complicating Status: Acute Discharge Plan - Patient Discharge Instructions ACTIVITY: No heavy lifting DIET: continue same diet Additional Instructions: *Nothing in the Vagina for 6 weeks* *No strenuous activity* *No heavy lifting* Patient Instructions: Depression, Hemorrhage, DI for Labor and Delivery, Vaginal , DI for Pre-eclampsia, [facility] Post Discharge Instructions, Preventing the Spread of Coronavirus Discharge Instructions - Follow up Plan Follow up with: Jeffrey Malagon MD [Staff Physician] - Disposition: Home, Self-Care Condition at discharge:: Stable (At home self-care stable) Home Medications: Home Medications Medication Instructions Recorded Confirmed Type prenat.vits,remedios,[id number] 1 tab PO DAILY 09/15/20 04/19/21 History Ferrous Sulfate 325 mg PO DAILY 04/19/21 04/19/21 History Valacyclovir HCl [Valacyclovir] 1,000 mg PO DAILY 04/19/21 04/19/21 History Prescriptions/Medication Reconciliation: Continued prenat.vits,remedios,[id number] 1 tab PO DAILY Ferrous Sulfate 325 mg PO DAILY Valacyclovir HCl [Valacyclovir] 1,000 mg PO DAILY - Problem Reconciliation Problems Reviewed?: Yes
== END 2021-04-20 15:10 | disposition home or self-care (01) | DRG 806 ==
PROVIDERS: Admitting Provider Nurse Practitioner Obstetrics & Gynecology; PCP Nurse Practitioner Family; Visit Provider Nurse Practitioner Obstetrics & Gynecology
DX: O99.824 Streptococcus B carrier state complicating childbirth (principal); N39.0 Urinary tract infection, site not specified; Z37.0 Single live birth; Z3A.39 39 weeks gestation of pregnancy; O75.3 Other infection during labor; O99.334 Smoking (tobacco) complicating childbirth; Z20.822 Contact with and (suspected) exposure to COVID-19; O36.5930 Maternal care for other known or suspected poor fetal growth, third trimester, not applicable or unspecified; O69.81X0 Labor and delivery complicated by cord around neck, without compression, not applicable or unspecified; O98.52 Other viral diseases complicating childbirth; F17.210 Nicotine dependence, cigarettes, uncomplicated
CPT/HCPCS: 59409; 36415; 59025; 80305; 81001; 85014; 85018; 85025; 85461; 86850; 87086; 94761; C1758; C9803; G0283; G0463; J0290; J2790; U0003; U0005

== ENCOUNTER → 2021-08-16 09:58 | Outpatient (CLI) | payer OTHER, SELFPAY ==
[2021-08-16 10:33] LABS: Basophils % 0.9 % (0.1-2.0); Eosinophils # 0.1 K/mm3 (0.0-0.4); Eosinophils % 1.7 % (0.1-12.0); Hematocrit 40.3 % (37.0-47.0); Hemoglobin 13.1 g/dL (12.2-16.2); Lymphocytes # 1.6 K/mm3 (0.7-4.5); Lymphocytes % 31.8 % (10-50); Mean Corpuscular HGB Conc 32.4 g/dL (31.8-35.4); Mean Corpuscular Hemoglobin 27.8 pg (27.0-31.2); Mean Corpuscular Volume 85.6 fl (81-99); Mean Platelet Volume 7.8 fl (7.4-10.4); Monocytes # 0.3 K/mm3 (0.1-1.0); Neutrophils % 60.5 % (37.0-80.0); Platelet Count 233 K/mm3 (142-424); Red Cell Distribution Width 14.2 % (11.5-17.5)
[2021-08-16 10:35] LABS: Chloride 105 mmol/L (98-107); Potassium 4.2 mmoL/L (3.5-5.1); Sodium 142 mmol/L (136-145)
[2021-08-16 10:38] LABS: Anion Gap 10.2 mEq/L (5-15); Blood Urea Nitrogen 10 mg/dl (7-17); Calcium 10.4 mg/dl (8.4-10.2); Carbon Dioxide 31 mmol/L (22.0-30.0); Estimated Glomerular Filt Rate 98 ml/min (>60); GFR (African American) 119 ML/MIN (>60); Glucose 91 mg/dl (74-100)
[2021-08-16 11:37] LABS: HCG Qualitative, Serum Negative (Negative)
== END ==
PROVIDERS: Visit Provider Nurse Practitioner Obstetrics & Gynecology
DX: Z01.818 Encounter for other preprocedural examination (principal); Z11.52 Encounter for screening for COVID-19
CPT/HCPCS: 80048; 84703; 85025; C9803; U0003; U0005

== ENCOUNTER 2021-08-18 07:39 | Day surgery (SDC) | payer OTHER, SELFPAY ==
[2021-08-15 16:29] VITALS: BMI 21.4
[2021-08-18] VITALS (12 sets, daily range): BP systolic 109–128; BP diastolic 57–85; PULSE 60–84; RESP 12–18; TEMP 36.4–43; O2SAT 95–99
--- NOTE | 2021-08-18 10:44 | HMH.ANESCL ---
[facility] Anesthesia Checklist - Structural Data Admitted From: Home Planned Operative Procedure/s: bilat salpingectomy Consent for Planned Operative Procedure(s) Verified: Yes - Additional verifications Anesthesia Reactions: No Hx Blood Transfusions: No Blood Transfusion Reaction: No - Airway Assessment C-Spine Mobility Assessed: Yes TMJ Mobility Assessed: Yes Dentition: Poor Dentition - Neurological Assessment Level of Consciousness: Awake, Alert, Appropriate - Anesthesia Plan Anesthesia Risk discussed: Yes Anesthesia Plan: Verified ASA Class: II Anesthesia Type: General [facility] History I have reviewed the patient's past medical history: Yes Medical History: Denies:: Cancer, Diabetes Mellitus Type 1, Diabetes Mellitus Type 2, Internal Pacemaker, MRSA, Seizures *Have you ever received a pneumonia vaccine?: No *Have you received a flu vaccine this season?: No Other Medical History: Reports: Thyroid Disease. Denies: Blood Transfusion Reaction Anesthesia experience/problems:: none Other Surgeries: Yes: No Previous Surgery, Other. No: , Pacemaker Amputation: No Fractures: Yes (LUMBAR FX 2 YEARS AGO) - *Social History Last grade of school completed: 9th or 10th Smoking Status: Current every day smoker Tobacco Type: cigarettes # Packs/Day (cigarettes): 1 Alcohol Intake: never Alcohol Intake Frequency:: other Substance Use Type: denies use *Occupational Status:: unemployed *Travel in the last 8 weeks: None Family Hx:: Hyperlipidemia, Diabetes, Asthma, Heart Attack, Hypertension, Stroke
--- NOTE | 2021-08-18 11:05 | PC.NURSE ---
pt voided per bedpan
--- NOTE | 2021-08-18 11:07 | HMH.OPNOTE ---
Date of procedure: 08/18/21 Pre-op Diagnosis:: Desire for sterilization Post-op Diagnosis:: Desire for sterilization Procedure performed:: Laparoscopic bilateral salpingectomy Surgeon:: Jeffrey Malagon MD WATCH TRAIN INSPECTOR:: Michel Michael Anesthesia: GETA Estimated blood loss (mL): 25 Clinical Note:: She is a 30-year-old 5 para 5 lady who expressed a desire for sterilization. The risks and benefits as well as the irreversibility of bilateral salpingectomy were discussed the patient prior to surgery. Operative findings:: She had a normal-appearing anteverted uterus. The tubes and ovaries appeared normal. The pelvis appeared normal. Both tubes were followed to their fimbriated ends and appeared normal. Operative note:: She was taken to the operating room where general anesthesia was found be adequate. She was prepped and draped in normal sterile fashion in the semilithotomy position. A weighted speculum was placed in the vagina and the anterior lip of the cervix was grasped with a tenaculum. I then inserted a Martha uterine manipulator into the cervical os. The balloon was then insufflated. I changed gloves and injected 10 cc of 0.5% ropivacaine around her umbilicus and made a small incision within the umbilicus. I inserted a Veress needle into the abdominal cavity. The peritoneal cavity was then insufflated with carbon dioxide gas to a pressure of 20 mmHg. I then inserted a 5 millimeter trocar under direct vision. I injected through and through the pubic hairline, made a small incision here and inserted an 8 mm trocar under direct vision. I identified the inferior epigastric artery on the left side, went lateral to these and injected through and through. I then placed a 5 mm trocar here under direct vision. The pelvis and upper abdomen were then inspected and the findings were as previously dictated. I grasped the right tube at the cornua and using harmonic scalpel on coagulation mode I cut through the tube. I then grasped the distal tube and using harmonic scalpel cut along the mesosalpinx. The tube was removed through 8 mm trocar site. This was similarly performed on the patient's left side. I then injected 30 cc of 0.5% ropivacaine into the pelvis. After assuring hemostasis the gas was let out of the abdomen and hemostasis was once again assured. The abdomen was then reinsufflated. The secondary trochars were removed under direct vision. The gas was let out her abdomen. The primary trocar was then removed. The 8 mm trocar site was closed deeply with 2-0 Vicryl suture followed by subcuticular 4-0 Monocryl suture. The 5 mm trocar sites were closed with subcuticular 4-0 Monocryl. Sterile dressings were applied. The patient tolerated the procedure well and was taken to the recovery room in excellent condition. All sponge instrument and needle counts were correct. The estimated blood loss was less than 25 cc. Condition: stable Disposition: PACU Specimens:: Bilateral fallopian tubes Complications:: None
--- NOTE | 2021-08-18 13:16 | HMH.ANESII ---
[facility] Anesthesia Record Part II Discharge Time: 11:10 Destination: Surgical Day Care (OP Surgery) PACU nurse assessment reviewed?: Yes Patient Condition:: Good Anesthesia Complications:: None Swallowing reflex intact?: Yes Cyanosis?: No Blood Pressure: 109/71 Pulse Rate: 61 Temperature: 97.6 F Mental Status: Alert & Oriented Pain level:: 2 Nausea and/or vomitting:: None Intake, IV Amount: 0
== END 2021-08-18 12:25 ==
LOC: OR 07:42
PROVIDERS: PCP Nurse Practitioner Family; Visit Provider Nurse Practitioner Obstetrics & Gynecology
PROC: (CPT 58661; principal; 2021-08-18 09:00)
DX: Z30.2 Encounter for sterilization (principal); Z72.0 Tobacco use; Z88.6 Allergy status to analgesic agent
CPT/HCPCS: 58661; 96374; J2405; J2710

== ENCOUNTER 2024-01-03 13:30 | Outpatient (CLI) | payer OTHER, SELFPAY | END 2024-01-03 23:59 | disposition home or self-care (01) | LOC: LAB.DROPOF 01-04 13:00 | PROVIDERS: PCP Student in an Organized Health Care Education/Training Program; Visit Provider Student in an Organized Health Care Education/Training Program | DX: R39.9 Unspecified symptoms and signs involving the genitourinary system (principal); N39.0 Urinary tract infection, site not specified; B96.20 Unspecified Escherichia coli [E. coli] as the cause of diseases classified elsewhere | CPT/HCPCS: 87086; 87088; 87186 ==